=== PATIENT | male | born 1995 | race Caucasian/White ===

== ENCOUNTER 2024-01-17 16:27 | Emergency (ER) | payer SELFPAY ==
[2024-01-17] MEDS ORDERED: Boostrix 0.5 ML (Tdap) VIAL (>/=7 yrs of age) ONE (16:55)
== END 2024-01-17 23:36 | disposition home or self-care (01) ==
LOC: NAV ERS 16:27
DX: F10.129 Alcohol abuse with intoxication, unspecified (principal); S40.812A Abrasion of left upper arm, initial encounter; Z23 Encounter for immunization; X58.XXXA Exposure to other specified factors, initial encounter
CPT/HCPCS: 70450; 90471; 90715